=== PATIENT | male | born 1960 | race Two or more races ===

== ENCOUNTER → 2017-12-20 | Outpatient (CLI) | payer OTHER | END | disposition home or self-care (01) | LOC: CVU 15:24 | PROVIDERS: ATTEND Surgery | DX: I87.2 Venous insufficiency (chronic) (peripheral) (principal); I83.813 Varicose veins of bilateral lower extremities with pain | CPT/HCPCS: 93971 ==

== ENCOUNTER → 2018-01-24 | Outpatient (CLI) | payer OTHER ==
[~2018-01-24] MED LIST: OMEP-110 PO
== END | disposition home or self-care (01) ==
LOC: CVU 14:46
PROVIDERS: ATTEND Surgery
DX: I83.812 Varicose veins of left lower extremity with pain (principal); T81.72XA Complication of vein following a procedure, not elsewhere classified, initial encounter; K21.9 Gastro-esophageal reflux disease without esophagitis; N18.9 Chronic kidney disease, unspecified
CPT/HCPCS: 93971

== ENCOUNTER → 2019-07-25 | Outpatient (CLI) | payer OTHER | END | disposition home or self-care (01) | LOC: CFH 07:14 | PROVIDERS: ATTEND Nurse Practitioner Family | DX: K80.20 Calculus of gallbladder without cholecystitis without obstruction (principal); K21.9 Gastro-esophageal reflux disease without esophagitis | CPT/HCPCS: 76700 ==

== ENCOUNTER 2019-09-18 15:30 | Outpatient (CLI) | payer OTHER ==
[2019-09-18 16:05] LABS: BASOPHILS # (AUTO) 0.02 x10^3/uL (0-0.1); BASOPHILS % (AUTO) 0 % (0-1); EOSINOPHILS # (AUTO) 0.35 x10^3/uL (0-0.4); EOSINOPHILS % (AUTO) 5 % (1-7); LYMPHOCYTES # (AUTO) 2.24 x10^3/uL (1-3.4); LYMPHOCYTES % (AUTO) 31 % (22-44); MD NO; MEAN CORPUSCULAR HEMOGLOBIN 31.9 pg (27.5-34.5); MEAN CORPUSCULAR VOLUME 93.7 fL (81-97); MEAN PLATELET VOLUME 8.4 fL (7.4-10.4); MONOCYTES # (AUTO) 0.39 x10^3/uL (0.2-0.8); MONOCYTES % (AUTO) 5 % (2-9); NEUTROPHILS # (AUTO) 4.16 x10^3/uL (1.8-6.8); NEUTROPHILS % (AUTO) 58 % (42-75); PLATELET COUNT 281 x10^3/uL (130-400); RED BLOOD COUNT 5.03 x10^6/uL (4.38-5.82); RED CELL DISTRIBUTION WIDTH 12.8 % (9.4-14.8)
[2019-09-18] MEDS ORDERED: VALA500T4 PO (16:06)
[2019-09-18 16:14] LABS: ALBUMIN 4.2 g/dL (3.4-5.0); ANION GAP 5 mmol/L (5-15); CALCIUM 9.1 mg/dL (8.5-10.1); CHLORIDE 106 mmol/L (98-107)
[2019-09-18 16:18] LABS: ALANINE AMINOTRANSFERASE 23 U/L (12-78); ALKALINE PHOSPHATASE 99 U/L (45-117); BILIRUBIN,TOTAL 0.3 mg/dL (0.2-1.0); CREATININE 0.91 mg/dL (0.7-1.3); TOTAL PROTEIN 7.9 g/dL (6.4-8.2)
== END 2019-09-18 23:59 | disposition home or self-care (01) ==
LOC: STAR 15:30
PROVIDERS: ATTEND Surgery
DX: Z01.818 Encounter for other preprocedural examination (principal)
CPT/HCPCS: 36415; 80053; 85025; 93005

== ENCOUNTER 2019-09-23 09:04 | Outpatient (CLI) | payer OTHER ==
[~2019-09-23] VITALS: Ht 165.1 cm; Wt 99.0 kg
[~2019-09-23 09:04] MED LIST changes: +VALA500T4 PO
== END 2019-09-23 23:59 | disposition home or self-care (01) ==
LOC: OUT 09:04 → EDSTATUS 11:00 → OUT 23:59
PROVIDERS: ATTEND Surgery
DX: Z02.9 Encounter for administrative examinations, unspecified (principal)

== ENCOUNTER 2019-10-07 09:45 | Day surgery (SDC) | payer OTHER ==
[~2019-10-07] VITALS: Ht 165.1 cm; Wt 95.5 kg
[2019-10-07] MEDS ORDERED: LACTATED RINGERS 1,000 ML IV SCH (10:25)
[2019-10-07] MEDS ORDERED: NONE PER PT (10:25)
[2019-10-07 10:26] VITALS: BP 141/94
[2019-10-07] MEDS ORDERED: BUPIVACAINE/PF 0.25% ONE (10:42)
[2019-10-07] MEDS ORDERED: EPINEPHRINE 1 MG/ML, 1ML ONE (10:42)
[2019-10-07] MEDS ORDERED: MIDAZOLAM 1 MG/ML, 2ML ONE (10:54)
[2019-10-07] MEDS ORDERED: FENTANYL PF 250 MCG/5ML ONE (10:54)
[2019-10-07] MEDS ORDERED: KETOROLAC 30 MG/1 ML IV PRN (11:30)
[2019-10-07] MEDS ORDERED: ACETAMINOPHEN 325 MG TABLET PO PRN (11:30)
[2019-10-07] MEDS ORDERED: LABETALOL 5MG/ML, 20ML IV PRN (11:30)
[2019-10-07] MEDS ORDERED: DIAZEPAM 5 MG/ML, 2ML IVPush PRN (11:30)
[2019-10-07] MEDS ORDERED: ALBUTEROL SULFATE 2.5 MG/3 ML NPPB PRN (11:30)
[2019-10-07] MEDS ORDERED: OXYcodone 5 MG/5 ML ORAL.SOL UDC PO PRN (11:30)
[2019-10-07] MEDS ORDERED: MEPERIDINE/PF 25MG/0.5ML IVPush PRN (11:30)
[2019-10-07] MEDS ORDERED: PROMETHAZINE 25 MG/ML, 1ML IV PRN (11:30)
[2019-10-07] MEDS ORDERED: hydrALAzine 20 MG/ML, 1ML IV PRN (11:30)
[2019-10-07] MEDS ORDERED: HYDROmorphone 2 MG/ML, 1ML IVPush PRN (11:30)
[2019-10-07] MEDS ORDERED: SUCCINYLCHOLINE 20 MG/ML, 10ML ONE (11:48)
[2019-10-07] MEDS ORDERED: ONDANSETRON 2MG/ML, 2ML ONE (11:48)
[2019-10-07] MEDS ORDERED: CEFAZOLIN 1,000 MG ONE (11:48)
[2019-10-07] MEDS ORDERED: NEOSTIGMINE 1 MG/ML, 10ML ONE (11:48)
[2019-10-07] MEDS ORDERED: PROPOFOL 10 MG/ML, 20ML ONE (11:48)
[2019-10-07] MEDS ORDERED: ROCURONIUM 10MG/ML,5ML ONE (11:48)
[2019-10-07] MEDS ORDERED: GLYCOPYRROLATE 0.2MG/1ML, 5ML ONE (11:48)
[2019-10-07] MEDS ORDERED: DEXAMETHASONE 4 MG/ML, 1ML ONE (11:48)
[2019-10-07] MEDS ORDERED: SUGAMMADEX 200 MG/2 ML IVPush ONE (11:48)
[2019-10-07] MEDS ORDERED: FENTANYL PF 100 MCG/2ML ONE (12:00)
[2019-10-07] MEDS: FENTANYL PF 100 MCG/2ML IV PRN ×2 (12:00→12:10)
[2019-10-07] MEDS ORDERED: OXYcodone 5 MG/5 ML ORAL.SOL UDC ONE (12:01)
== END 2019-10-07 14:00 | disposition home or self-care (01) ==
LOC: OUT 09:45
PROVIDERS: ATTEND Surgery
DX: K80.10 Calculus of gallbladder with chronic cholecystitis without obstruction (principal); K82.8 Other specified diseases of gallbladder; E66.9 Obesity, unspecified; Z68.36 Body mass index [BMI] 36.0-36.9, adult; Z87.891 Personal history of nicotine dependence; Z90.49 Acquired absence of other specified parts of digestive tract; Z98.890 Other specified postprocedural states
CPT/HCPCS: 47562; 88304; J0171; J0690; J1100; J2250; J2405; J2704; J3010; J3490; J7120; J2710; J0330